=== PATIENT | female | born 1945 | race Caucasian/White ===

== ENCOUNTER → 2020-08-07 | Outpatient (CLI) | payer MEDICARE | END | disposition home or self-care (01) | LOC: RAD 15:58 | PROVIDERS: ATTEND Internal Medicine | DX: H70.91 Unspecified mastoiditis, right ear (principal); R42 Dizziness and giddiness; R26.9 Unspecified abnormalities of gait and mobility; R29.818 Other symptoms and signs involving the nervous system | CPT/HCPCS: 70551 ==